=== PATIENT | male | born 1940 | race African-American/Black ===

== ENCOUNTER 2017-07-19 12:10 | Inpatient (IN) | payer MEDICARE ==
[~2017-07-19] VITALS: Ht 180.3 cm; Wt 83.3 kg
[2017-07-19] MEDS ORDERED: METO25TA6 PO ×2 (12:28→22:01)
[2017-07-19] MEDS ORDERED: METF500T4 PO ×2 (12:28→22:01)
[2017-07-19] MEDS ORDERED: NAPR-1176 PO (12:28)
[2017-07-19] MEDS ORDERED: ALD2525 PO (12:28)
[2017-07-19] MEDS ORDERED: FURO40TA5 PO ×2 (12:28→22:01)
[2017-07-19] MEDS ORDERED: ASPIRIN 81MG TABLET PO STA (14:19)
[2017-07-19] MEDS ORDERED: NITROGLYCERIN OINT 1GM/INCH UDPKT TD STA (14:19)
[2017-07-19] MEDS ORDERED: FUROSEMIDE 40MG/4ML VIAL IV STA (14:19)
[2017-07-19 14:44] LABS: BASOPHILS % 0.9 % (0.0-2.0); EOSINOPHILS % 2.3 % (0.0-5.0); HEMATOCRIT. 30.7 % (42.0-52.0); HEMOGLOBIN. 9.5 g/dL (14.0-18.0); LYMPHOCYTES % 11.5 % (20.0-50.0); MEAN CORPUSCULAR HEMOGLOBIN 27.5 pg (28.0-32.0); MEAN CORPUSCULAR VOLUME 89.1 fL (80.0-94.0); MEAN PLATELET VOLUME 9.6 fl (7.4-10.4); MONOCYTES % 8.6 % (2.0-8.0); NEUTROPHILS % 76.7 % (40.0-76.0); PLATELET 173 x1000/uL (130-400); RED BLOOD CELL COUNT 3.45 mill/uL (4.7-6.1); RED CELL DISTRIBUTION WIDTH 17.3 % (11.6-14.6)
[2017-07-19 14:50] LABS: INR 1.2; PARTIAL THROMBOPLASTIN TIME 25.1 sec (23.4-31.0); PROTHROMBIN TIME 12.1 sec (9.4-11.6)
[2017-07-19 14:53] LABS: CHLORIDE 118 mEq/L (98-107)
[2017-07-19 14:59] LABS: TROPONIN I 0.09 ng/mL (0.00-0.04)
[2017-07-19] MEDS ORDERED: HEPARIN 5000 UNITS/ML VIAL IV ONE (15:30)
[2017-07-19] MEDS ORDERED: ALBUTEROL (0.083%) 2.5MG/3ML NEB HHN ONE (15:30)
[2017-07-19] MEDS ORDERED: INSULIN REGULAR (HUMULIN R) 300UNITS/3ML IV ONE (15:30)
[2017-07-19] MEDS ORDERED: CALCIUM GLUCONATE 1,000 MG in DEXTROSE 5% WATER 50 ML IV ONE (15:30)
[2017-07-19] MEDS ORDERED: SODIUM POLYSTYRENE SULFONATE 15 G/60 ML BOT PO ONE (15:30)
[2017-07-19] MEDS ORDERED: DEXTROSE 50% WATER 50ML SYRINGE IV ONE (15:30)
[2017-07-19] MEDS ORDERED: SODIUM BICARBONATE 8.4% 1 MEQ/ML 50ML SYR IV ONE (15:30)
[2017-07-19] MEDS ORDERED: HEPARIN 25,000 UNITS PREMIX 500 ML IV SCH ×4 (15:30→19:45)
[2017-07-19] MEDS ORDERED: ALBUTEROL (0.5%) 2.5MG/0.5ML NEB HHN ONE (15:52)
[2017-07-19 15:56] LABS: CLARITY URINE CLEAR (CLEAR); COLOR URINE YELLOW (YELLOW); KETONES URINE NEGATIVE (NEGATIVE); LEUKOCYTE ESTERASE URINE TRACE (NEGATIVE); NITRITE URINE NEGATIVE (NEGATIVE); OCCULT BLOOD URINE 1+ (NEGATIVE); PROTEIN URINE 3+ (NEGATIVE); SPECIFIC GRAVITY URINE 1.016 (1.005-1.030); UROBILINOGEN URINE 0.2 E.U./dL (0.2-1.0)
[2017-07-19] MEDS ORDERED: MORPHINE SULFATE 4 MG/ML CPJ (NOT FOR IM USE) IV PRN ×2 (16:30→17:30)
[2017-07-19] MEDS ORDERED: CLONIDINE 0.1MG TABLET PO PRN (16:30)
[2017-07-19] MEDS ORDERED: MAGNESIUM/ALUMINUM HYDROXIDE/SIMETHICONE 30ML UDC PO PRN (16:30)
[2017-07-19] MEDS ORDERED: ONDANSETRON HCL 4MG/2ML VIAL IV PRN (16:30)
[2017-07-19] MEDS ORDERED: IPRATROPIUM/ALBUTEROL 0.5-3(2.5)MG/3ML NEB INH PRN (16:30)
[2017-07-19] MEDS ORDERED: DIPHENHYDRAMINE 50MG/ML VIAL IV PRN (16:30)
[2017-07-19] MEDS ORDERED: ACETAMINOPHEN 325MG TABLET PO PRN (16:30)
[2017-07-19] MEDS ORDERED: TRAMADOL 50MG TABLET PO PRN (16:30)
[2017-07-19] MEDS ORDERED: GUAIFENESIN 200MG/10ML SUGAR FREE UDC PO PRN (16:30)
[2017-07-19] MEDS ORDERED: DEXTROSE 50% WATER 50ML SYRINGE IV PRN (16:30)
[2017-07-19] MEDS ORDERED: DOCUSATE SODIUM 100MG CAPSULE PO PRN (16:30)
[2017-07-19] MEDS ORDERED: NA PHOS,M-B/NA PHOS,DI-BA ENEMA 118ML PR PRN (16:30)
[2017-07-19] MEDS ORDERED: NITROGLYCERIN 0.4MG TABLET SL SL PRN (16:30)
[2017-07-19] MEDS ORDERED: CEFTRIAXONE 1 G PREMIX 50 ML IV ONE (17:00)
[2017-07-19] MEDS ORDERED: SODIUM POLYSTYRENE SULFONATE 15 G/60 ML BOT PO NR (17:00)
[2017-07-19] MEDS: CARVEDILOL 3.125 MG TABLET PO SCH (18:00)
[2017-07-19] MEDS: FUROSEMIDE 40MG/4ML VIAL IVP SCH (19:00)
[2017-07-19] MEDS ORDERED: METOLAZONE 10MG TABLET PO NR (19:00)
[2017-07-19 19:11] VITALS: BP 146/71
[2017-07-19] MEDS ORDERED: HEPARIN BOLUS PRN aPTT <36 IV (19:45)
[2017-07-19] MEDS ORDERED: HEPARIN BOLUS PRN aPTT 37-44 IV (19:45)
[2017-07-19 19:58] LABS: TOTAL IRON BINDING CAPACITY 186 ug/dL (250-450)
[2017-07-19 20:00] VITALS: BP 138/71
[2017-07-19 20:27] LABS: FOLIC ACID (FOLATE) SERUM 7.9 ng/mL (>5.38)
[2017-07-19] MEDS ORDERED: ZOLPIDEM TARTRATE 5MG TABLET PO PRN (21:00)
[2017-07-19] MEDS: INSULIN LISPRO 100 UNITS/ML SUBCUT SCH (21:00)
[2017-07-19] MEDS: BLOOD SUGAR DIAGNOSTIC STRIP TEST SCH (21:00)
[2017-07-19 22:00] VITALS: BP 124/62
[2017-07-19] MEDS ORDERED: SPIR25TA4 PO (22:01)
[2017-07-19] MEDS ORDERED: NAPR-681 PO (22:01)
[2017-07-19] MEDS: FAMOTIDINE 20MG/2ML VIAL IV SCH (22:28)
[2017-07-19] MEDS: GUAIFENESIN/DM 600MG/30MG ER TAB 12HR PO SCH (22:28)
[2017-07-20] VITALS: BP 124/62
[2017-07-20 00:19] LABS: CREATINE KINASE MB FRACTION 9.3 ng/mL (0.5-3.6); TROPONIN I 0.23 ng/mL (0.00-0.04)
[2017-07-20 04:00] VITALS: BP 142/78
[2017-07-20 04:20] LABS: CREATINE KINASE MB FRACTION 9.2 ng/mL (0.5-3.6)
[2017-07-20 04:28] LABS: TROPONIN I 0.41 ng/mL (0.00-0.04)
[2017-07-20] MEDS: BLOOD SUGAR DIAGNOSTIC STRIP TEST SCH ×4 (05:31→21:42)
[2017-07-20] MEDS: CARVEDILOL 3.125 MG TABLET PO SCH ×2 (05:58→18:16)
[2017-07-20] MEDS: FUROSEMIDE 40MG/4ML VIAL IVP SCH ×2 (05:58→18:14)
[2017-07-20] MEDS: INSULIN LISPRO 100 UNITS/ML SUBCUT SCH ×4 (06:47→21:00)
[2017-07-20 08:30] VITALS: BP 106/65
[2017-07-20] MEDS: CITRIC ACID/SODIUM CITRATE SOLN 15ML UDC PO SCH ×3 (08:55→18:14)
[2017-07-20] MEDS: ASPIRIN 325MG EC TABLET PO SCH (08:55)
[2017-07-20] MEDS: GUAIFENESIN/DM 600MG/30MG ER TAB 12HR PO SCH ×2 (08:55→21:43)
[2017-07-20 10:51] LABS: BASOPHILS % 1.3 % (0.0-2.0); EOSINOPHILS % 2.4 % (0.0-5.0); HEMATOCRIT. 23.4 % (42.0-52.0); HEMOGLOBIN. 7.5 g/dL (14.0-18.0); MEAN CORPUSCULAR HEMOGLOBIN 27.9 pg (28.0-32.0); MEAN CORPUSCULAR VOLUME 86.9 fL (80.0-94.0); MEAN PLATELET VOLUME 8.5 fl (7.4-10.4); MONOCYTES % 11.4 % (2.0-8.0); NEUTROPHILS % 72.9 % (40.0-76.0); PLATELET 130 x1000/uL (130-400); RED CELL DISTRIBUTION WIDTH 16.7 % (11.6-14.6)
[2017-07-20 11:24] LABS: CHLORIDE 117 mEq/L (98-107)
[2017-07-20 11:28] LABS: PHOSPHORUS 5.7 mg/dL (2.5-4.9)
[2017-07-20 12:00] VITALS: BP 124/64
[2017-07-20 14:52] LABS: TOTAL IRON BINDING CAPACITY 166 ug/dL (250-450)
[2017-07-20 15:21] LABS: BG BASE EXCESS -11.2 mmol/L (-2.0-2.0); BG CARBOXYHEMOGLOBIN 0.4 % (0.5-1.5); BG DEOXYHEMOGLOBIN 3.4 % (0.0-5.0); BG FRACTION INSPIRED OXYGEN 21; BG HCO3 ACT 14.4 mmol/L (22.0-26.0); BG METHEMOGLOBIN 0.4 % (0.0-1.5); BG OXYGEN SATURATION 96.6 % (92.0-98.5); BG OXYHEMOGLOBIN 95.8 % (94.0-97.0); BG PCO2 30.6 mmHg (35.0-45.0); BG PH 7.289 (7.350-7.450); BG PO2 97.8 mmHg (75.0-100.0); BG SAMPLE SITE RIGHT RADIAL; BG TOTAL HEMOGLOBIN 8.4 g/dL (12.0-18.0); BG VENT MODE ROOM AIR
[2017-07-20] MEDS: CEFTRIAXONE 1 G PREMIX 50 ML IV SCH (18:15)
[2017-07-20 20:00] VITALS: BP 132/70
[2017-07-20] MEDS ORDERED: EPOETIN ALFA 10000UNITS/ML VIAL SUBCUT NR (21:00)
[2017-07-20] MEDS: FAMOTIDINE 20MG/2ML VIAL IV SCH (21:44)
[2017-07-20 22:00] VITALS: BP 152/90
[2017-07-21] VITALS (18 sets, daily range): BP systolic 107–169; BP diastolic 50–83
[2017-07-21 06:00] LABS: BASOPHILS % 1.3 % (0.0-2.0); EOSINOPHILS % 3.8 % (0.0-5.0); HEMATOCRIT. 23.3 % (42.0-52.0); HEMOGLOBIN. 7.6 g/dL (14.0-18.0); LYMPHOCYTES % 14.9 % (20.0-50.0); MEAN CORPUSCULAR HEMOGLOBIN 28.1 pg (28.0-32.0); MEAN CORPUSCULAR VOLUME 85.9 fL (80.0-94.0); MEAN PLATELET VOLUME 9.7 fl (7.4-10.4); MONOCYTES % 11.5 % (2.0-8.0); NEUTROPHILS % 68.5 % (40.0-76.0); PLATELET 132 x1000/uL (130-400); RED BLOOD CELL COUNT 2.72 mill/uL (4.7-6.1); RED CELL DISTRIBUTION WIDTH 16.8 % (11.6-14.6)
[2017-07-21] MEDS: CARVEDILOL 3.125 MG TABLET PO SCH ×2 (06:26→18:14)
[2017-07-21] MEDS: FUROSEMIDE 40MG/4ML VIAL IVP SCH (06:36)
[2017-07-21 06:49] LABS: CHLORIDE 117 mEq/L (98-107)
[2017-07-21 07:03] LABS: CREATINE KINASE 285 IU/L (39-308); CREATINE KINASE MB FRACTION 6.5 ng/mL (0.5-3.6); PHOSPHORUS 5.8 mg/dL (2.5-4.9); TROPONIN I 0.34 ng/mL (0.00-0.04)
[2017-07-21] MEDS: BLOOD SUGAR DIAGNOSTIC STRIP TEST SCH ×4 (07:30→20:38)
[2017-07-21] MEDS: INSULIN LISPRO 100 UNITS/ML SUBCUT SCH ×4 (08:00→20:57)
[2017-07-21 08:40] LABS: HAPTOGLOBIN 80 mg/dL (30-200)
[2017-07-21] MEDS: GUAIFENESIN/DM 600MG/30MG ER TAB 12HR PO SCH ×2 (08:42→20:38)
[2017-07-21] MEDS: ASPIRIN 325MG EC TABLET PO SCH (08:42)
[2017-07-21] MEDS: CITRIC ACID/SODIUM CITRATE SOLN 15ML UDC PO SCH ×3 (08:42→16:19)
[2017-07-21] MEDS: AMLODIPINE 2.5MG TABLET PO SCH ×2 (12:57→16:20)
[2017-07-21] MEDS ORDERED: IOHEXOL-300 100 ML BOTTLE ONE (14:28)
[2017-07-21] MEDS: CEFTRIAXONE 1 G PREMIX 50 ML IV SCH (16:19)
[2017-07-21] MEDS: FAMOTIDINE 20MG/2ML VIAL IV SCH (20:38)
[2017-07-22] VITALS (12 sets, daily range): BP systolic 120–146; BP diastolic 54–75
[2017-07-22] MEDS: CARVEDILOL 3.125 MG TABLET PO SCH ×2 (05:35→18:25)
[2017-07-22] MEDS: BLOOD SUGAR DIAGNOSTIC STRIP TEST SCH ×4 (07:42→21:08)
[2017-07-22] MEDS: INSULIN LISPRO 100 UNITS/ML SUBCUT SCH ×4 (08:00→21:16)
[2017-07-22] MEDS: GUAIFENESIN/DM 600MG/30MG ER TAB 12HR PO SCH ×2 (08:45→21:09)
[2017-07-22] MEDS: AMLODIPINE 2.5MG TABLET PO SCH ×2 (08:45→18:26)
[2017-07-22] MEDS: ASPIRIN 325MG EC TABLET PO SCH (08:45)
[2017-07-22] MEDS: CITRIC ACID/SODIUM CITRATE SOLN 15ML UDC PO SCH ×3 (08:45→18:25)
[2017-07-22 09:27] LABS: BASOPHILS % 0.9 % (0.0-2.0); EOSINOPHILS % 3.1 % (0.0-5.0); HEMATOCRIT. 24.1 % (42.0-52.0); HEMOGLOBIN. 7.8 g/dL (14.0-18.0); LYMPHOCYTES % 8.9 % (20.0-50.0); MEAN CORPUSCULAR HEMOGLOBIN 28.1 pg (28.0-32.0); MEAN CORPUSCULAR VOLUME 86.7 fL (80.0-94.0); MEAN PLATELET VOLUME 9.6 fl (7.4-10.4); MONOCYTES % 10.5 % (2.0-8.0); NEUTROPHILS % 76.6 % (40.0-76.0); PLATELET 134 x1000/uL (130-400); RED BLOOD CELL COUNT 2.78 mill/uL (4.7-6.1); RED CELL DISTRIBUTION WIDTH 16.6 % (11.6-14.6)
[2017-07-22 09:45] LABS: CHLORIDE 115 mEq/L (98-107)
[2017-07-22 10:01] LABS: CREATINE KINASE 259 IU/L (39-308); PHOSPHORUS 5.6 mg/dL (2.5-4.9); TROPONIN I 0.23 ng/mL (0.00-0.04)
[2017-07-22 10:09] LABS: CREATINE KINASE MB FRACTION 4.8 ng/mL (0.5-3.6)
[2017-07-22] MEDS: DOCUSATE SODIUM 100MG CAPSULE PO SCH ×2 (12:42→18:25)
[2017-07-22] MEDS: FUROSEMIDE 40MG/4ML VIAL IVP SCH ×2 (12:42→21:07)
[2017-07-22] MEDS: CEFTRIAXONE 1 G PREMIX 50 ML IV SCH (18:25)
[2017-07-22] MEDS: FAMOTIDINE 20MG/2ML VIAL IV SCH (21:07)
[2017-07-23] VITALS (15 sets, daily range): BP systolic 118–152; BP diastolic 59–84
[2017-07-23] MEDS: CARVEDILOL 3.125 MG TABLET PO SCH ×2 (05:20→17:54)
[2017-07-23 06:39] LABS: EOSINOPHILS % 1.9 % (0.0-5.0); HEMATOCRIT. 24.6 % (42.0-52.0); HEMOGLOBIN. 7.9 g/dL (14.0-18.0); LYMPHOCYTES % 8.4 % (20.0-50.0); MEAN CORPUSCULAR HEMOGLOBIN 27.5 pg (28.0-32.0); MEAN CORPUSCULAR VOLUME 85.4 fL (80.0-94.0); MEAN PLATELET VOLUME 9.7 fl (7.4-10.4); MONOCYTES % 11.1 % (2.0-8.0); NEUTROPHILS % 77.6 % (40.0-76.0); PLATELET 127 x1000/uL (130-400); RED BLOOD CELL COUNT 2.88 mill/uL (4.7-6.1); RED CELL DISTRIBUTION WIDTH 16.3 % (11.6-14.6)
[2017-07-23 06:57] LABS: PHOSPHORUS 4.9 mg/dL (2.5-4.9)
[2017-07-23] MEDS: BLOOD SUGAR DIAGNOSTIC STRIP TEST SCH ×4 (07:30→21:38)
[2017-07-23] MEDS: INSULIN LISPRO 100 UNITS/ML SUBCUT SCH ×4 (08:00→21:46)
[2017-07-23] MEDS: DOCUSATE SODIUM 100MG CAPSULE PO SCH ×2 (09:00→17:53)
[2017-07-23] MEDS: ASPIRIN 325MG EC TABLET PO SCH (09:00)
[2017-07-23] MEDS: FUROSEMIDE 40MG/4ML VIAL IVP SCH (09:00)
[2017-07-23] MEDS: GUAIFENESIN/DM 600MG/30MG ER TAB 12HR PO SCH ×2 (09:01→21:38)
[2017-07-23] MEDS: AMLODIPINE 2.5MG TABLET PO SCH ×2 (09:01→17:53)
[2017-07-23] MEDS: CITRIC ACID/SODIUM CITRATE SOLN 15ML UDC PO SCH ×3 (09:02→17:53)
[2017-07-23] MEDS ORDERED: MAGNESIUM 2 G PREMIX 50 ML IV SCH (11:00)
[2017-07-23] MEDS ORDERED: SORBITOL 70% SOLN 30ML PO SCH (14:15)
[2017-07-23] MEDS: CEFTRIAXONE 1 G PREMIX 50 ML IV SCH (17:54)
[2017-07-23] MEDS: FAMOTIDINE 20MG/2ML VIAL IV SCH (21:37)
[2017-07-23] MEDS: FUROSEMIDE 100MG/10ML VIAL IV SCH (21:38)
[2017-07-24] VITALS (10 sets, daily range): BP systolic 124–157; BP diastolic 60–81
[2017-07-24] MEDS: CARVEDILOL 3.125 MG TABLET PO SCH (06:34)
[2017-07-24 07:42] LABS: HEMOGLOBIN. 8.3 g/dL (14.0-18.0); MEAN CORPUSCULAR HEMOGLOBIN 28.6 pg (28.0-32.0); MEAN CORPUSCULAR VOLUME 86.2 fL (80.0-94.0); MEAN PLATELET VOLUME 9.9 fl (7.4-10.4); PLATELET 128 x1000/uL (130-400); RED CELL DISTRIBUTION WIDTH 16.4 % (11.6-14.6)
[2017-07-24] MEDS: INSULIN LISPRO 100 UNITS/ML SUBCUT SCH ×2 (08:00→13:22)
[2017-07-24 08:11] LABS: PHOSPHORUS 5.1 mg/dL (2.5-4.9)
[2017-07-24] MEDS: BLOOD SUGAR DIAGNOSTIC STRIP TEST SCH ×2 (08:13→12:50)
[2017-07-24] MEDS: FUROSEMIDE 100MG/10ML VIAL IV SCH (08:37)
[2017-07-24] MEDS: CITRIC ACID/SODIUM CITRATE SOLN 15ML UDC PO SCH ×2 (08:38→13:22)
[2017-07-24] MEDS: DOCUSATE SODIUM 100MG CAPSULE PO SCH (08:38)
[2017-07-24] MEDS: GUAIFENESIN/DM 600MG/30MG ER TAB 12HR PO SCH (08:39)
[2017-07-24] MEDS: AMLODIPINE 2.5MG TABLET PO SCH (08:39)
[2017-07-24] MEDS: ASPIRIN 325MG EC TABLET PO SCH (08:39)
[2017-07-24 11:08] LABS: PLATELET ESTIMATE SLIGHTLY DECREASED
== END 2017-07-24 17:10 | disposition home or self-care (01) | DRG 252 ==
LOC: ER 12:10 → EDBEDREQ 15:37 → 5WST 15:37 → EDBEDREQTM 15:37 → ENRESERV 16:14 → SUPCPDRO 16:47 → 5EST 07-20 18:48
PROVIDERS: ADMIT Internal Medicine; ATTEND Internal Medicine
PROC: 06H03DZ Insertion of Intraluminal Device into Inferior Vena Cava, Percutaneous Approach (ICD-10-PCS; principal; 2017-07-21)
DX: I82.411 Acute embolism and thrombosis of right femoral vein (principal); J96.01 Acute respiratory failure with hypoxia; N17.0 Acute kidney failure with tubular necrosis; E44.0 Moderate protein-calorie malnutrition; E87.2 Acidosis; I27.20 Pulmonary hypertension, unspecified; E83.39 Other disorders of phosphorus metabolism; N17.9 Acute kidney failure, unspecified; N39.0 Urinary tract infection, site not specified; R18.8 Other ascites; E87.5 Hyperkalemia; I50.9 Heart failure, unspecified; D64.9 Anemia, unspecified; E11.9 Type 2 diabetes mellitus without complications; F17.210 Nicotine dependence, cigarettes, uncomplicated; I11.0 Hypertensive heart disease with heart failure; I44.7 Left bundle-branch block, unspecified; I70.0 Atherosclerosis of aorta; B95.2 Enterococcus as the cause of diseases classified elsewhere; Z79.4 Long term (current) use of insulin; Z82.49 Family history of ischemic heart disease and other diseases of the circulatory system; Z83.3 Family history of diabetes mellitus; Z86.718 Personal history of other venous thrombosis and embolism; Z79.84 Long term (current) use of oral hypoglycemic drugs; Z79.899 Other long term (current) drug therapy; Z68.25 Body mass index [BMI] 25.0-25.9, adult
CPT/HCPCS: 36415; 36600; 37191; 71045; 76770; 78582; 80048; 80053; 80061; 81003; 82270; 82375; 82550; 82553; 82607; 82728; 82746; 82805; 82962; 83010; 83036; 83520; 83540; 83550; 83615; 83735; 83880; 84100; 84484; 85025; 85044; 85610; 85730; 86256; 86880; 87077; 87086; 87186; 93005; 93306; 93970; 94640; 96365; 96375; 99291; A9558; C1769; C1880; J0610; J0696; J0885; J1644; J1815; J1940; J3475; J3490; J7050; J7060; J7611; Q9967

== ENCOUNTER 2018-09-26 11:31 | Day surgery (SDC) | payer MEDICARE, MEDICAID ==
[~2018-09-26] VITALS: Ht 182.9 cm; Wt 66.7 kg
[~2018-09-26 11:31] MED LIST: ALD2525 PO; FURO40TA5 PO; HEPARIN SODIUM 1,000 UNIT/1ML VIAL IV ONE; METF-414 PO; METO25TA6 PO; NAPR-1176 PO; NAPR-681 PO; NICARDIPINE 100MCG/ML 10ML VIAL (CATH LAB) IV ONE; NITROGLYCERIN 50MCG/ML 10ML VIAL (CATH LAB) IV ONE; SPIR25TA6 PO
[2018-09-26] MEDS ORDERED: FENTANYL CITRATE/PF 50MCG/ML 2ML VIAL ONE (12:19)
[2018-09-26] MEDS ORDERED: ASPIRIN/SOD BICARB/CITRIC ACID 324MG TAB EFF ONE (12:19)
[2018-09-26] MEDS ORDERED: MIDAZOLAM HCL 2 MG/2 ML VIAL ONE (12:19)
[2018-09-26] MEDS ORDERED: IODIXANOL 320MG/ML 100 ML BOTTLE IV ONE (12:20)
[2018-09-26] MEDS ORDERED: LIDOCAINE HCL 1% 20ML VIAL (Pyxis) INJ ONE (12:20)
[2018-09-26] MEDS ORDERED: CARV3.1242 MT (12:48)
[2018-09-26] MEDS ORDERED: ASPI-1158 MT (12:48)
[2018-09-26 13:05] LABS: HEMATOCRIT 36.4 % (42.0-52.0); HEMOGLOBIN 11.9 g/dL (14.0-18.0); MEAN CORPUSCULAR HEMOGLOBIN 29.1 pg (28.0-32.0); PLATELET 220 x1000/uL (130-400); RED BLOOD CELL COUNT 4.09 mill/uL (4.7-6.1); RED CELL DISTRIBUTION WIDTH 16.7 % (11.6-14.6)
[2018-09-26 13:20] LABS: PARTIAL THROMBOPLASTIN TIME 27.4 sec (23.4-31.0); PROTHROMBIN TIME 10.5 sec (9.6-11.0)
[2018-09-26] MEDS ORDERED: ACETAMINOPHEN 325MG TABLET PO PRN (14:15)
[2018-09-26] MEDS ORDERED: MORPHINE SULFATE 2 MG/ML CPJ (NOT FOR IM USE) IV PRN (14:15)
[2018-09-26] MEDS ORDERED: ATROPINE SULFATE 1MG/10ML SYR IV PRN (14:15)
[2018-09-26] MEDS ORDERED: ONDANSETRON HCL 4MG/2ML INJ IV PRN (14:15)
== END 2018-09-26 18:05 | disposition home or self-care (01) ==
LOC: CCL 11:31
PROVIDERS: ATTEND Specialist
DX: I25.10 Atherosclerotic heart disease of native coronary artery without angina pectoris (principal); I12.0 Hypertensive chronic kidney disease with stage 5 chronic kidney disease or end stage renal disease; N18.6 End stage renal disease; E11.22 Type 2 diabetes mellitus with diabetic chronic kidney disease; I35.0 Nonrheumatic aortic (valve) stenosis; D64.9 Anemia, unspecified; Z79.01 Long term (current) use of anticoagulants; I44.7 Left bundle-branch block, unspecified; Z79.899 Other long term (current) drug therapy; Z79.82 Long term (current) use of aspirin; Z99.2 Dependence on renal dialysis; Z95.828 Presence of other vascular implants and grafts; Z95.2 Presence of prosthetic heart valve; Z79.84 Long term (current) use of oral hypoglycemic drugs; Z83.3 Family history of diabetes mellitus; Z82.49 Family history of ischemic heart disease and other diseases of the circulatory system
CPT/HCPCS: 36415; 80048; 85027; 85610; 85730; 93458; 99152; 99153; C1769; C1887; C1893; J1644; J2250; J3010; J3490; Q9967; G0500

== ENCOUNTER 2018-10-02 10:05 | Inpatient (IN) | payer MEDICARE, MEDICAID ==
[2018-10-02] VITALS (16 sets, daily range): BP systolic 101–174; BP diastolic 40–68
[~2018-10-02] VITALS: Ht 188 cm; Wt 72.6 kg
[~2018-10-02 10:05] MED LIST changes: +ASPI-1158 MT; +CARV3.1242 MT; -HEPARIN SODIUM 1,000 UNIT/1ML VIAL IV ONE; -NICARDIPINE 100MCG/ML 10ML VIAL (CATH LAB) IV ONE; -NITROGLYCERIN 50MCG/ML 10ML VIAL (CATH LAB) IV ONE
[2018-10-02] MEDS ORDERED: AMLO2.5T45 PO (12:20)
[2018-10-02 12:36] LABS: HEMATOCRIT 35.3 % (42.0-52.0); HEMOGLOBIN 11.2 g/dL (14.0-18.0); MEAN CORPUSCULAR HEMOGLOBIN 28.9 pg (28.0-32.0); MEAN CORPUSCULAR VOLUME 90.8 fL (80.0-94.0); PLATELET 197 x1000/uL (130-400); RED BLOOD CELL COUNT 3.89 mill/uL (4.7-6.1); RED CELL DISTRIBUTION WIDTH 17.8 % (11.6-14.6)
[2018-10-02 12:45] LABS: PARTIAL THROMBOPLASTIN TIME 26.1 sec (23.4-31.0); PROTHROMBIN TIME 10.8 sec (9.6-11.0)
[2018-10-02] MEDS ORDERED: NITROGLYCERIN 50MCG/ML 10ML VIAL (CATH LAB) IV ONE (13:20)
[2018-10-02] MEDS ORDERED: NICARDIPINE 100MCG/ML 10ML VIAL (CATH LAB) IV ONE (13:20)
[2018-10-02] MEDS ORDERED: HEPARIN SODIUM 1,000 UNIT/1ML VIAL IV ONE (13:20)
[2018-10-02] MEDS ORDERED: MIDAZOLAM HCL 2 MG/2 ML VIAL ONE (13:46)
[2018-10-02] MEDS ORDERED: LIDOCAINE HCL 1% 20ML VIAL (Pyxis) INJ ONE (13:46)
[2018-10-02] MEDS ORDERED: ASPIRIN/SOD BICARB/CITRIC ACID 324MG TAB EFF ONE (13:46)
[2018-10-02] MEDS ORDERED: IODIXANOL 320MG/ML 100 ML BOTTLE IV ONE (13:46)
[2018-10-02] MEDS ORDERED: FENTANYL CITRATE/PF 50MCG/ML 2ML VIAL ONE (13:47)
[2018-10-02] MEDS ORDERED: IOHEXOL-300 100 ML BOTTLE ONE (14:08)
[2018-10-02] MEDS ORDERED: CLOPIDOGREL 75MG TABLET ONE ×3 (14:43→15:12)
[2018-10-02] MEDS ORDERED: ATROPINE SULFATE 1MG/10ML SYR IV PRN (15:15)
[2018-10-02] MEDS ORDERED: CLOPIDOGREL 75MG TABLET PO ONE (15:15)
[2018-10-02] MEDS ORDERED: ONDANSETRON HCL 4MG/2ML INJ IV PRN (15:15)
[2018-10-02] MEDS ORDERED: ACETAMINOPHEN 325MG TABLET PO PRN (15:15)
[2018-10-02] MEDS ORDERED: MORPHINE SULFATE 4 MG/ML CPJ (NOT FOR IM USE) IV PRN (15:15)
[2018-10-02] MEDS: CARVEDILOL 3.125 MG TABLET PO SCH (21:00)
[2018-10-03] VITALS (14 sets, daily range): BP systolic 122–158; BP diastolic 53–68
[2018-10-03] MEDS: AMLODIPINE 2.5MG TABLET PO SCH ×2 (00:49→08:51)
[2018-10-03 06:07] LABS: BASOPHILS % 0.9 % (0.0-2.0); EOSINOPHILS % 3.4 % (0.0-5.0); HEMATOCRIT. 33.9 % (42.0-52.0); HEMOGLOBIN. 10.9 g/dL (14.0-18.0); LYMPHOCYTES % 20.4 % (20.0-50.0); MEAN CORPUSCULAR HEMOGLOBIN 28.8 pg (28.0-32.0); MEAN CORPUSCULAR VOLUME 90.1 fL (80.0-94.0); MEAN PLATELET VOLUME 9.2 fl (7.4-10.4); MONOCYTES % 13.7 % (2.0-8.0); NEUTROPHILS % 61.6 % (40.0-76.0); PLATELET 188 x1000/uL (130-400); RED BLOOD CELL COUNT 3.77 mill/uL (4.7-6.1); RED CELL DISTRIBUTION WIDTH 17.9 % (11.6-14.6)
[2018-10-03] MEDS: CARVEDILOL 3.125 MG TABLET PO SCH (08:51)
[2018-10-03] MEDS ORDERED: ASPIRIN 325MG TABLET PO SCH (09:00)
[2018-10-03] MEDS ORDERED: CLOPIDOGREL 75MG TABLET PO SCH (09:00)
== END 2018-10-03 12:05 | disposition home or self-care (01) | DRG 246 ==
LOC: CCL 10:05 → 3WST 10:06
PROVIDERS: ADMIT Specialist; ATTEND Specialist
PROC: 4A023N7 Measurement of Cardiac Sampling and Pressure, Left Heart, Percutaneous Approach (ICD-10-PCS; principal; 2018-10-02)
PROC: 027135Z Dilation of Coronary Artery, Two Arteries with Two Drug-eluting Intraluminal Devices, Percutaneous Approach (ICD-10-PCS; 2018-10-02)
PROC: 02C03ZZ Extirpation of Matter from Coronary Artery, One Artery, Percutaneous Approach (ICD-10-PCS; 2018-10-02)
PROC: B2111ZZ Fluoroscopy of Multiple Coronary Arteries using Low Osmolar Contrast (ICD-10-PCS; 2018-10-02)
PROC: 4A033BC Measurement of Arterial Pressure, Coronary, Percutaneous Approach (ICD-10-PCS; 2018-10-02)
PROC: 5A1D70Z Performance of Urinary Filtration, Intermittent, Less than 6 Hours Per Day (ICD-10-PCS; 2018-10-03)
DX: I25.10 Atherosclerotic heart disease of native coronary artery without angina pectoris (principal); N18.6 End stage renal disease; I13.2 Hypertensive heart and chronic kidney disease with heart failure and with stage 5 chronic kidney disease, or end stage renal disease; E78.00 Pure hypercholesterolemia, unspecified; I44.7 Left bundle-branch block, unspecified; I50.9 Heart failure, unspecified; E11.22 Type 2 diabetes mellitus with diabetic chronic kidney disease; I49.1 Atrial premature depolarization; Z86.718 Personal history of other venous thrombosis and embolism; Z95.2 Presence of prosthetic heart valve; Z99.2 Dependence on renal dialysis; Z95.828 Presence of other vascular implants and grafts; Z83.3 Family history of diabetes mellitus; Z82.49 Family history of ischemic heart disease and other diseases of the circulatory system; Z79.899 Other long term (current) drug therapy
CPT/HCPCS: 36415; 80048; 85027; 85347; 93005; C1726; J1644; J2250; J3010; J3490; Q9967

== ENCOUNTER 2019-01-22 15:08 | Inpatient (IN) | payer MEDICARE, MEDICAID ==
[~2019-01-22] VITALS: Ht 182.9 cm; Wt 72.2 kg
[~2019-01-22 15:08] MED LIST changes: -ALD2525 PO; +AMLO2.5T45 PO; -FURO40TA5 PO; -METF-414 PO; -METO25TA6 PO; -NAPR-1176 PO; -NAPR-681 PO; -SPIR25TA6 PO
[2019-01-22] MEDS ORDERED: ATROPINE SULFATE 1MG/10ML SYR IV PRN (16:45)
[2019-01-22 17:16] LABS: BASOPHILS % 0.8 % (0.0-2.0); EOSINOPHILS % 5.6 % (0.0-5.0); HEMATOCRIT. 31.6 % (42.0-52.0); HEMOGLOBIN. 10.5 g/dL (14.0-18.0); LYMPHOCYTES % 13.4 % (20.0-50.0); MEAN CORPUSCULAR HEMOGLOBIN 29.3 pg (28.0-32.0); MEAN CORPUSCULAR VOLUME 87.9 fL (80.0-94.0); MONOCYTES % 13.6 % (2.0-8.0); NEUTROPHILS % 66.6 % (40.0-76.0); PLATELET 202 x1000/uL (130-400); RED CELL DISTRIBUTION WIDTH 15.9 % (11.6-14.6)
[2019-01-22 17:21] LABS: CHLORIDE 104 mEq/L (98-107)
[2019-01-22 17:24] LABS: INR 1.1; PROTHROMBIN TIME 10.9 sec (9.6-11.0)
[2019-01-22] MEDS ORDERED: HYDROCODONE/ACETAMINOPHEN 5/325MG TABLET PO PRN (17:30)
[2019-01-22] MEDS ORDERED: MORPHINE SULFATE 2 MG/ML CPJ (NOT FOR IM USE) IV PRN (17:30)
[2019-01-22] MEDS ORDERED: ONDANSETRON HCL 4MG/2ML INJ IV PRN (17:30)
[2019-01-22] MEDS ORDERED: DIPHENHYDRAMINE 50MG/ML VIAL IV PRN (17:30)
[2019-01-22] MEDS ORDERED: GUAIFENESIN 200MG/10ML SUGAR FREE UDC PO PRN (17:30)
[2019-01-22] MEDS ORDERED: DOCUSATE SODIUM 100MG CAPSULE PO PRN (17:30)
[2019-01-22] MEDS ORDERED: ACETAMINOPHEN 325MG TABLET PO PRN (17:30)
[2019-01-22] MEDS ORDERED: ENOXAPARIN 80MG/0.8ML SYR SUBCUT ONE (18:45)
[2019-01-22 20:00] VITALS: BP 146/56
[2019-01-22 20:52] VITALS: BP 100/61
[2019-01-22] MEDS ORDERED: AMLODIPINE 2.5MG TABLET PO SCH (21:00)
[2019-01-22] MEDS ORDERED: DEXTROSE 50% WATER 50ML SYRINGE IV PRN (21:00)
[2019-01-22] MEDS: INSULIN LISPRO 100 UNITS/ML SUBCUT SCH (21:16)
[2019-01-22] MEDS: BLOOD SUGAR DIAGNOSTIC STRIP TEST SCH (21:16)
[2019-01-22] MEDS: ENOXAPARIN 30MG/0.3ML SYR SUBCUT SCH (21:17)
[2019-01-22 22:00] VITALS: BP 145/59
[2019-01-22] MEDS: AMLODIPINE 5MG TABLET PO SCH (22:27)
[2019-01-23] VITALS (12 sets, daily range): BP systolic 117–146; BP diastolic 44–87
[2019-01-23 05:12] LABS: BASOPHILS % 1.3 % (0.0-2.0); EOSINOPHILS % 7.2 % (0.0-5.0); HEMATOCRIT. 31.4 % (42.0-52.0); HEMOGLOBIN. 10.2 g/dL (14.0-18.0); LYMPHOCYTES % 16.4 % (20.0-50.0); MEAN CORPUSCULAR HEMOGLOBIN 28.8 pg (28.0-32.0); MEAN CORPUSCULAR VOLUME 88.4 fL (80.0-94.0); MEAN PLATELET VOLUME 8.3 fl (7.4-10.4); MONOCYTES % 13.9 % (2.0-8.0); NEUTROPHILS % 61.2 % (40.0-76.0); PLATELET 216 x1000/uL (130-400); RED BLOOD CELL COUNT 3.55 mill/uL (4.7-6.1); RED CELL DISTRIBUTION WIDTH 16.2 % (11.6-14.6)
[2019-01-23] MEDS: BLOOD SUGAR DIAGNOSTIC STRIP TEST SCH ×4 (06:10→21:25)
[2019-01-23] MEDS: INSULIN LISPRO 100 UNITS/ML SUBCUT SCH ×4 (07:20→21:00)
[2019-01-23] MEDS ORDERED: ASPIRIN 81MG EC TABLET PO SCH (09:00)
[2019-01-23] MEDS: CLOPIDOGREL 75MG TABLET PO SCH (09:16)
[2019-01-23] MEDS: AMLODIPINE 5MG TABLET PO SCH ×2 (09:16→21:49)
[2019-01-23] MEDS: ASPIRIN 81MG EC TABLET PO SCH (17:00)
[2019-01-23] MEDS: ENOXAPARIN 30MG/0.3ML SYR SUBCUT SCH (21:49)
[2019-01-24] VITALS (13 sets, daily range): BP systolic 114–148; BP diastolic 42–73
[2019-01-24] MEDS: INSULIN LISPRO 100 UNITS/ML SUBCUT SCH ×4 (07:20→21:00)
[2019-01-24] MEDS: BLOOD SUGAR DIAGNOSTIC STRIP TEST SCH ×4 (07:28→21:41)
[2019-01-24 07:31] LABS: HEMATOCRIT. 31.7 % (42.0-52.0); HEMOGLOBIN. 10.4 g/dL (14.0-18.0); MEAN CORPUSCULAR VOLUME 88.6 fL (80.0-94.0); MEAN PLATELET VOLUME 8.7 fl (7.4-10.4); PLATELET 185 x1000/uL (130-400); RED BLOOD CELL COUNT 3.58 mill/uL (4.7-6.1); RED CELL DISTRIBUTION WIDTH 15.8 % (11.6-14.6)
[2019-01-24 08:41] LABS: PHOSPHORUS 3.9 mg/dL (2.5-4.9)
[2019-01-24] MEDS: ASPIRIN 81MG EC TABLET PO SCH (09:48)
[2019-01-24] MEDS: CLOPIDOGREL 75MG TABLET PO SCH (09:48)
[2019-01-24] MEDS: AMLODIPINE 5MG TABLET PO SCH ×2 (09:49→21:46)
[2019-01-24 11:28] LABS: PLATELET ESTIMATE NORMAL
[2019-01-24] MEDS: ENOXAPARIN 30MG/0.3ML SYR SUBCUT SCH (21:46)
[2019-01-25] VITALS (12 sets, daily range): BP systolic 115–149; BP diastolic 46–61
[2019-01-25 06:23] LABS: BASOPHILS % 1.3 % (0.0-2.0); EOSINOPHILS % 6.4 % (0.0-5.0); HEMATOCRIT. 31.8 % (42.0-52.0); HEMOGLOBIN. 10.3 g/dL (14.0-18.0); LYMPHOCYTES % 15.3 % (20.0-50.0); MEAN CORPUSCULAR HEMOGLOBIN 28.8 pg (28.0-32.0); MEAN CORPUSCULAR VOLUME 88.8 fL (80.0-94.0); MEAN PLATELET VOLUME 8.5 fl (7.4-10.4); MONOCYTES % 14.9 % (2.0-8.0); NEUTROPHILS % 62.1 % (40.0-76.0); PLATELET 182 x1000/uL (130-400); RED BLOOD CELL COUNT 3.58 mill/uL (4.7-6.1); RED CELL DISTRIBUTION WIDTH 15.9 % (11.6-14.6)
[2019-01-25 06:36] LABS: PHOSPHORUS 4.5 mg/dL (2.5-4.9)
[2019-01-25] MEDS: BLOOD SUGAR DIAGNOSTIC STRIP TEST SCH ×4 (06:39→21:00)
[2019-01-25] MEDS: INSULIN LISPRO 100 UNITS/ML SUBCUT SCH ×4 (07:20→21:00)
[2019-01-25] MEDS: AMLODIPINE 5MG TABLET PO SCH ×2 (09:25→21:27)
[2019-01-25] MEDS: ENOXAPARIN 30MG/0.3ML SYR SUBCUT SCH (21:00)
[2019-01-26] VITALS (21 sets, daily range): BP systolic 109–128; BP diastolic 42–69
[2019-01-26] MEDS: BLOOD SUGAR DIAGNOSTIC STRIP TEST SCH ×4 (07:00→21:46)
[2019-01-26 07:09] LABS: BASOPHILS % 1.2 % (0.0-2.0); EOSINOPHILS % 6.6 % (0.0-5.0); HEMATOCRIT. 32.6 % (42.0-52.0); HEMOGLOBIN. 10.7 g/dL (14.0-18.0); LYMPHOCYTES % 17.6 % (20.0-50.0); MEAN CORPUSCULAR HEMOGLOBIN 28.9 pg (28.0-32.0); MEAN CORPUSCULAR VOLUME 87.9 fL (80.0-94.0); MONOCYTES % 14.3 % (2.0-8.0); NEUTROPHILS % 60.3 % (40.0-76.0); PLATELET 181 x1000/uL (130-400); RED BLOOD CELL COUNT 3.71 mill/uL (4.7-6.1); RED CELL DISTRIBUTION WIDTH 15.6 % (11.6-14.6)
[2019-01-26] MEDS: INSULIN LISPRO 100 UNITS/ML SUBCUT SCH ×4 (07:20→21:00)
[2019-01-26 07:39] LABS: CHLORIDE 104 mEq/L (98-107)
[2019-01-26 07:51] LABS: PHOSPHORUS 4.6 mg/dL (2.5-4.9)
[2019-01-26] MEDS ORDERED: IODIXANOL 320MG/ML 100 ML BOTTLE IV ONE (08:02)
[2019-01-26] MEDS ORDERED: MIDAZOLAM HCL 2 MG/2 ML VIAL ONE (08:24)
[2019-01-26] MEDS ORDERED: SUCCINYLCHOLINE CHLORIDE 200MG/10ML IV ONE (08:24)
[2019-01-26] MEDS ORDERED: PROPOFOL 200MG/20ML VIAL IV ONE (08:24)
[2019-01-26] MEDS ORDERED: CEFAZOLIN SODIUM 1000MG/VIAL ONE (08:24)
[2019-01-26] MEDS ORDERED: FENTANYL CITRATE/PF 50MCG/ML 2ML VIAL ONE (09:16)
[2019-01-26] MEDS ORDERED: SODIUM CHLORIDE 0.9% 1,000 ML IV ONE (09:49)
[2019-01-26] MEDS ORDERED: ONDANSETRON HCL 4MG/2ML INJ IV PRN (10:00)
[2019-01-26] MEDS ORDERED: HYDROMORPHONE HCL/PF 2MG/ML CPJ IV PRN (10:00)
[2019-01-26] MEDS ORDERED: HYDROCODONE/ACETAMINOPHEN 5/325MG TABLET PO PRN (10:30)
[2019-01-26] MEDS: AMLODIPINE 5MG TABLET PO SCH ×2 (13:45→21:43)
[2019-01-26] MEDS: ENOXAPARIN 30MG/0.3ML SYR SUBCUT SCH (21:43)
[2019-01-27] VITALS (12 sets, daily range): BP systolic 118–143; BP diastolic 50–64
[2019-01-27] MEDS: INSULIN LISPRO 100 UNITS/ML SUBCUT SCH ×4 (07:20→21:00)
[2019-01-27] MEDS: BLOOD SUGAR DIAGNOSTIC STRIP TEST SCH ×4 (07:42→21:24)
[2019-01-27 08:18] LABS: BASOPHILS % 1.3 % (0.0-2.0); EOSINOPHILS % 5.1 % (0.0-5.0); HEMATOCRIT. 33.5 % (42.0-52.0); HEMOGLOBIN. 11.5 g/dL (14.0-18.0); LYMPHOCYTES % 14.3 % (20.0-50.0); MEAN CORPUSCULAR HEMOGLOBIN 30.2 pg (28.0-32.0); MEAN CORPUSCULAR VOLUME 87.8 fL (80.0-94.0); MEAN PLATELET VOLUME 8.6 fl (7.4-10.4); MONOCYTES % 10.8 % (2.0-8.0); NEUTROPHILS % 68.5 % (40.0-76.0); PLATELET 187 x1000/uL (130-400); RED BLOOD CELL COUNT 3.81 mill/uL (4.7-6.1); RED CELL DISTRIBUTION WIDTH 15.6 % (11.6-14.6)
[2019-01-27 08:29] LABS: PHOSPHORUS 6.2 mg/dL (2.5-4.9)
[2019-01-27] MEDS: AMLODIPINE 5MG TABLET PO SCH ×2 (09:17→21:25)
[2019-01-27] MEDS: CLOPIDOGREL 75MG TABLET PO SCH (11:46)
[2019-01-27] MEDS: ASPIRIN 81MG EC TABLET PO SCH (11:46)
[2019-01-27] MEDS ORDERED: SODIUM POLYSTYRENE SULFONATE 15 G/60 ML BOT PO NR (12:30)
[2019-01-27] MEDS: ENOXAPARIN 30MG/0.3ML SYR SUBCUT SCH (21:25)
[2019-01-28] VITALS (7 sets, daily range): BP systolic 112–142; BP diastolic 53–113
[2019-01-28] MEDS: BLOOD SUGAR DIAGNOSTIC STRIP TEST SCH (06:54)
[2019-01-28 07:13] LABS: BASOPHILS % 1.5 % (0.0-2.0); EOSINOPHILS % 5.6 % (0.0-5.0); HEMATOCRIT. 30.7 % (42.0-52.0); HEMOGLOBIN. 10.2 g/dL (14.0-18.0); LYMPHOCYTES % 15.8 % (20.0-50.0); MEAN CORPUSCULAR HEMOGLOBIN 28.9 pg (28.0-32.0); MEAN CORPUSCULAR VOLUME 86.7 fL (80.0-94.0); MEAN PLATELET VOLUME 8.7 fl (7.4-10.4); MONOCYTES % 12.3 % (2.0-8.0); NEUTROPHILS % 64.8 % (40.0-76.0); PLATELET 193 x1000/uL (130-400); RED BLOOD CELL COUNT 3.54 mill/uL (4.7-6.1); RED CELL DISTRIBUTION WIDTH 15.5 % (11.6-14.6)
[2019-01-28 07:15] LABS: PHOSPHORUS 6.2 mg/dL (2.5-4.9)
[2019-01-28] MEDS: INSULIN LISPRO 100 UNITS/ML SUBCUT SCH (07:20)
[2019-01-28] MEDS: CLOPIDOGREL 75MG TABLET PO SCH (08:55)
[2019-01-28] MEDS: ASPIRIN 81MG EC TABLET PO SCH (08:55)
[2019-01-28] MEDS: AMLODIPINE 5MG TABLET PO SCH (08:55)
[2019-01-28] MEDS ORDERED: CLOP75TA4 PO (11:02)
[2019-01-28] MEDS ORDERED: AMLO5TAB4 PO (11:12)
== END 2019-01-28 11:51 | disposition home or self-care (01) | DRG 242 ==
LOC: ER 15:08 → 3WST 16:56 → ENRESERV 17:45 → 3WST 19:56
PROVIDERS: ADMIT Hospitalist; ATTEND Hospitalist
PROC: 5A1D70Z Performance of Urinary Filtration, Intermittent, Less than 6 Hours Per Day (ICD-10-PCS; principal; 2019-01-23)
PROC: 5A1D70Z Performance of Urinary Filtration, Intermittent, Less than 6 Hours Per Day (ICD-10-PCS; 2019-01-25)
PROC: 0JH606Z Insertion of Pacemaker, Dual Chamber into Chest Subcutaneous Tissue and Fascia, Open Approach (ICD-10-PCS; 2019-01-26)
PROC: 02H63JZ Insertion of Pacemaker Lead into Right Atrium, Percutaneous Approach (ICD-10-PCS; 2019-01-26)
PROC: 02HK3JZ Insertion of Pacemaker Lead into Right Ventricle, Percutaneous Approach (ICD-10-PCS; 2019-01-26)
PROC: B51NYZA Fluoroscopy of Left Upper Extremity Veins using Other Contrast, Guidance (ICD-10-PCS; 2019-01-26)
DX: I44.30 Unspecified atrioventricular block (principal); I50.33 Acute on chronic diastolic (congestive) heart failure; N18.6 End stage renal disease; I13.2 Hypertensive heart and chronic kidney disease with heart failure and with stage 5 chronic kidney disease, or end stage renal disease; E44.0 Moderate protein-calorie malnutrition; N25.81 Secondary hyperparathyroidism of renal origin; R00.1 Bradycardia, unspecified; Z96.649 Presence of unspecified artificial hip joint; I44.7 Left bundle-branch block, unspecified; E78.5 Hyperlipidemia, unspecified; D64.9 Anemia, unspecified; E78.00 Pure hypercholesterolemia, unspecified; I42.9 Cardiomyopathy, unspecified; E11.22 Type 2 diabetes mellitus with diabetic chronic kidney disease; I25.10 Atherosclerotic heart disease of native coronary artery without angina pectoris; I27.20 Pulmonary hypertension, unspecified; Z99.2 Dependence on renal dialysis; Z95.2 Presence of prosthetic heart valve; Z86.718 Personal history of other venous thrombosis and embolism; Z95.828 Presence of other vascular implants and grafts; Z87.891 Personal history of nicotine dependence; Z95.5 Presence of coronary angioplasty implant and graft; Z82.49 Family history of ischemic heart disease and other diseases of the circulatory system; Z83.3 Family history of diabetes mellitus; Z68.21 Body mass index [BMI] 21.0-21.9, adult
CPT/HCPCS: 33208; 33210; 36415; 71045; 75820; 80048; 80061; 82962; 83036; 83735; 84100; 84443; 84484; 93005; 93306; 93970; 99285; A4565; C1785; C1892; C1893; C1898; J0330; J0690; J1650; J2250; J2704; J3010; Q9967

== ENCOUNTER 2020-06-06 12:58 | Inpatient (IN) | payer MEDICAID, MEDICARE, OTHER ==
[~2020-06-06] VITALS: Ht 182.9 cm; Wt 67.6 kg
[~2020-06-06 12:58] MED LIST changes: -AMLO2.5T45 PO; +AMLO5TAB4 PO; -ASPI-1158 MT; +ASPI-1406 MT; -CARV3.1242 MT; +CLOP-31 PO
[2020-06-06 13:39] LABS: BASOPHILS % 0.9 % (0.0-2.0); EOSINOPHILS % 2.7 % (0.0-5.0); HEMATOCRIT. 31.7 % (42.0-52.0); HEMOGLOBIN. 10.2 g/dL (14.0-18.0); LYMPHOCYTES % 13.5 % (20.0-50.0); MEAN CORPUSCULAR HEMOGLOBIN 31.4 pg (28.0-32.0); MEAN CORPUSCULAR VOLUME 97.6 fL (80.0-94.0); NEUTROPHILS % 70.9 % (40.0-76.0); PLATELET 165 x1000/uL (130-400); RED BLOOD CELL COUNT 3.25 mill/uL (4.7-6.1); RED CELL DISTRIBUTION WIDTH 15.9 % (11.6-14.6)
[2020-06-06 13:45] LABS: CHLORIDE 97 mEq/L (98-107)
[2020-06-06 13:50] LABS: INR 1.2; PROTHROMBIN TIME 12.6 sec (9.6-11.0)
[2020-06-06] MEDS ORDERED: DIPHENHYDRAMINE 50MG/ML VIAL IV PRN (20:15)
[2020-06-06] MEDS ORDERED: MAGNESIUM/ALUMINUM HYDROXIDE/SIMETHICONE 30ML UDC PO PRN (20:15)
[2020-06-06] MEDS ORDERED: ONDANSETRON HCL 4MG/2ML INJ IV PRN (20:15)
[2020-06-06] MEDS ORDERED: ACETAMINOPHEN 325MG TABLET PO PRN ×2 (20:15)
[2020-06-06] MEDS ORDERED: ZOLPIDEM TARTRATE 5MG TABLET PO PRN (21:00)
[2020-06-06] MEDS: SODIUM CHLORIDE 0.9% INJ 3ML FLUSH IVF SCH (23:22)
[2020-06-07] MEDS: SODIUM CHLORIDE 0.9% INJ 3ML FLUSH IVF SCH ×3 (06:00→22:12)
[2020-06-07] MEDS: CLOPIDOGREL 75MG TABLET PO SCH (09:10)
[2020-06-07] MEDS: ASPIRIN 81MG EC TABLET PO SCH (09:10)
[2020-06-07 14:00] VITALS: BP 109/57
[2020-06-07 16:00] VITALS: BP 103/56
[2020-06-07 18:00] VITALS: BP 118/69
[2020-06-07 20:05] VITALS: BP 100/57
[2020-06-08] VITALS (12 sets, daily range): BP systolic 98–119; BP diastolic 50–69
[2020-06-08] MEDS: SODIUM CHLORIDE 0.9% INJ 3ML FLUSH IVF SCH ×3 (05:17→22:46)
[2020-06-08 07:03] LABS: PHOSPHORUS 6.9 mg/dL (2.5-4.9)
[2020-06-08 07:04] LABS: HEMATOCRIT. 28.1 % (42.0-52.0); HEMOGLOBIN. 9.4 g/dL (14.0-18.0); MEAN CORPUSCULAR HEMOGLOBIN 32.2 pg (28.0-32.0); MEAN CORPUSCULAR VOLUME 96.3 fL (80.0-94.0); MEAN PLATELET VOLUME 10.3 fl (7.4-10.4); PLATELET 124 x1000/uL (130-400); RED BLOOD CELL COUNT 2.92 mill/uL (4.7-6.1); RED CELL DISTRIBUTION WIDTH 15.7 % (11.6-14.6)
[2020-06-08] MEDS: ASPIRIN 81MG EC TABLET PO SCH (08:41)
[2020-06-08] MEDS: CLOPIDOGREL 75MG TABLET PO SCH (08:41)
[2020-06-08] MEDS ORDERED: ENOXAPARIN 30MG/0.3ML SYR SUBCUT SCH (09:00)
[2020-06-08 20:24] LABS: PLATELET ESTIMATE DECREASED
[2020-06-09] VITALS (14 sets, daily range): BP systolic 97–117; BP diastolic 43–70
[2020-06-09] MEDS: SODIUM CHLORIDE 0.9% INJ 3ML FLUSH IVF SCH ×3 (05:58→22:00)
[2020-06-09 06:13] LABS: HEMATOCRIT. 28.3 % (42.0-52.0); HEMOGLOBIN. 9.5 g/dL (14.0-18.0); MEAN CORPUSCULAR HEMOGLOBIN 32.2 pg (28.0-32.0); MEAN CORPUSCULAR VOLUME 96.1 fL (80.0-94.0); MEAN PLATELET VOLUME 10.1 fl (7.4-10.4); PLATELET 129 x1000/uL (130-400); RED BLOOD CELL COUNT 2.94 mill/uL (4.7-6.1); RED CELL DISTRIBUTION WIDTH 15.3 % (11.6-14.6)
[2020-06-09 06:18] LABS: PHOSPHORUS 7.8 mg/dL (2.5-4.9)
[2020-06-09 06:22] LABS: T4 FREE 0.89 ng/dL (0.76-1.46)
[2020-06-09] MEDS ORDERED: LIDOCAINE HCL 1% 20ML VIAL (Pyxis) INJ ONE (07:31)
[2020-06-09] MEDS ORDERED: IOHEXOL-300 100 ML BOTTLE ONE (07:32)
[2020-06-09] MEDS ORDERED: IODIXANOL 320MG/ML 100 ML BOTTLE IV ONE (07:32)
[2020-06-09] MEDS: CLOPIDOGREL 75MG TABLET PO SCH (07:42)
[2020-06-09] MEDS: ASPIRIN 81MG EC TABLET PO SCH (07:42)
[2020-06-09] MEDS ORDERED: ASPIRIN/SOD BICARB/CITRIC ACID 324MG TAB EFF ONE (07:44)
[2020-06-09] MEDS ORDERED: MIDAZOLAM HCL 5 MG/5 ML VIAL ONE (07:51)
[2020-06-09] MEDS ORDERED: FENTANYL CITRATE/PF 50MCG/ML 5ML VIAL ONE (07:51)
[2020-06-09] MEDS ORDERED: MIDAZOLAM HCL 2 MG/2 ML VIAL ONE (09:28)
[2020-06-09] MEDS ORDERED: CLOPIDOGREL 75MG TABLET ONE (09:31)
[2020-06-09] MEDS ORDERED: ATROPINE SULFATE 1MG/10ML SYR IV PRN (09:45)
[2020-06-09] MEDS ORDERED: MORPHINE SULFATE 2 MG/ML CPJ (NOT FOR IM USE) IV PRN (09:45)
[2020-06-09] MEDS ORDERED: ACETAMINOPHEN 325MG TABLET PO PRN (09:45)
[2020-06-09] MEDS ORDERED: ONDANSETRON HCL 4MG/2ML INJ IV PRN (09:45)
[2020-06-09] MEDS ORDERED: CLOPIDOGREL 75MG TABLET PO SCH (09:45)
[2020-06-09 16:23] LABS: PLATELET ESTIMATE DECREASED
[2020-06-09] MEDS: ASPIRIN 81MG TABLET PO SCH (17:30)
[2020-06-10] VITALS (9 sets, daily range): BP systolic 98–117; BP diastolic 52–65
[2020-06-10] MEDS: SODIUM CHLORIDE 0.9% INJ 3ML FLUSH IVF SCH (05:14)
[2020-06-10 06:43] LABS: BASOPHILS % 1.4 % (0.0-2.0); EOSINOPHILS % 2.1 % (0.0-5.0); HEMOGLOBIN. 9.9 g/dL (14.0-18.0); LYMPHOCYTES % 8.6 % (20.0-50.0); MEAN CORPUSCULAR HEMOGLOBIN 32.4 pg (28.0-32.0); MEAN CORPUSCULAR VOLUME 98.2 fL (80.0-94.0); MONOCYTES % 13.2 % (2.0-8.0); NEUTROPHILS % 74.7 % (40.0-76.0); PLATELET 139 x1000/uL (130-400); RED BLOOD CELL COUNT 3.05 mill/uL (4.7-6.1); RED CELL DISTRIBUTION WIDTH 15.9 % (11.6-14.6)
[2020-06-10 07:38] LABS: PHOSPHORUS 5.7 mg/dL (2.5-4.9)
[2020-06-10] MEDS ORDERED: CLOPIDOGREL 75MG TABLET PO SCH (09:00)
[2020-06-10] MEDS: ASPIRIN 81MG TABLET PO SCH (09:00)
[2020-06-10] MEDS: ASPIRIN 81MG EC TABLET PO SCH (09:23)
== END 2020-06-10 15:42 | disposition home or self-care (01) | DRG 246 ==
LOC: ER 12:58 → 3WST 15:31 → EDBEDREQTM 15:41 → EDBEDREQ 15:41 → ENRESERV 06-07 11:25
PROVIDERS: ADMIT Internal Medicine; ATTEND Internal Medicine
PROC: 027034Z Dilation of Coronary Artery, One Artery with Drug-eluting Intraluminal Device, Percutaneous Approach (ICD-10-PCS; principal; 2020-06-09)
PROC: B2111ZZ Fluoroscopy of Multiple Coronary Arteries using Low Osmolar Contrast (ICD-10-PCS; 2020-06-09)
PROC: 4A023N7 Measurement of Cardiac Sampling and Pressure, Left Heart, Percutaneous Approach (ICD-10-PCS; 2020-06-09)
PROC: 5A1D70Z Performance of Urinary Filtration, Intermittent, Less than 6 Hours Per Day (ICD-10-PCS; 2020-06-09)
DX: I21.4 Non-ST elevation (NSTEMI) myocardial infarction (principal); N18.6 End stage renal disease; I13.2 Hypertensive heart and chronic kidney disease with heart failure and with stage 5 chronic kidney disease, or end stage renal disease; E11.22 Type 2 diabetes mellitus with diabetic chronic kidney disease; E78.5 Hyperlipidemia, unspecified; H54.8 Legal blindness, as defined in USA; I25.10 Atherosclerotic heart disease of native coronary artery without angina pectoris; I27.21 Secondary pulmonary arterial hypertension; I35.0 Nonrheumatic aortic (valve) stenosis; I44.1 Atrioventricular block, second degree; I44.7 Left bundle-branch block, unspecified; G90.8 Other disorders of autonomic nervous system; Z96.649 Presence of unspecified artificial hip joint; D64.9 Anemia, unspecified; Z20.822 Contact with and (suspected) exposure to COVID-19; I50.9 Heart failure, unspecified; R26.89 Other abnormalities of gait and mobility; Z82.49 Family history of ischemic heart disease and other diseases of the circulatory system; Z86.718 Personal history of other venous thrombosis and embolism; Z86.73 Personal history of transient ischemic attack (TIA), and cerebral infarction without residual deficits; Z95.2 Presence of prosthetic heart valve; Z95.5 Presence of coronary angioplasty implant and graft; Z95.828 Presence of other vascular implants and grafts; Z99.2 Dependence on renal dialysis; Z79.899 Other long term (current) drug therapy; Z79.82 Long term (current) use of aspirin
CPT/HCPCS: 36415; 71045; 80048; 80053; 82962; 83735; 84100; 84439; 84443; 84481; 84484; 85025; 85347; 87426; 92928; 93005; 93454; 93880; 99285; C1725; C1760; C1769; C1874; C1887; C1893; J1644; J1650; J2250; J3010; J3490; Q9967